=== PATIENT | female | born 1960 | race Caucasian/White ===

== ENCOUNTER → 2018-07-06 | Outpatient (REF) | payer OTHER ==
[2018-07-06 13:38] LABS: BASO % 0.2 % (0.0-1.0); EOS # 0.1 10^3/uL (0.0-0.50); EOS % 1.3 % (0.0-3.0); HEMATOCRIT 40.9 % (36.0-47.0); LYMPH # 1.7 10^3/uL (1.5-4.5); LYMPH % 36.3 % (24.0-44.0); MEAN CORPUSCULAR HEMOGLOBIN 29.5 pg (27.0-33.0); MEAN CORPUSCULAR HGB CONC 31.8 g/dl (32.0-36.5); MEAN CORPUSCULAR VOLUME 92.7 fl (80.0-96.0); MONO # 0.4 10^3/uL (0.0-0.8); MONO % 7.8 % (0.0-5.0); NEUTROPHILS # 2.6 10^3/uL (1.8-7.7); NEUTROPHILS % 54.2 % (36.0-66.0); PLATELET COUNT, AUTOMATED 190 10^3/uL (150-450); RED BLOOD COUNT 4.41 10^6/uL (4.00-5.40); WHITE BLOOD COUNT 4.8 10^3/uL (4.0-10.0)
[2018-07-06 13:47] LABS: ALT/SGPT 23 U/L (12-78); BILIRUBIN,TOTAL 0.9 MG/DL (0.2-1.0); BLOOD UREA NITROGEN 16 MG/DL (7-18); CALCIUM LEVEL 8.8 MG/DL (8.5-10.1); CARBON DIOXIDE LEVEL 32 MEQ/L (21-32); CHLORIDE LEVEL 108 MEQ/L (98-107); CREATININE FOR GFR 0.84 MG/DL (0.55-1.30); GLOMERULAR FILTRATION RATE > 60.0 (>51); GLUCOSE, FASTING 77 MG/DL (70-100); POTASSIUM SERUM 4.5 MEQ/L (3.5-5.1); SODIUM LEVEL 145 MEQ/L (136-145); TOTAL PROTEIN 7.1 GM/DL (6.4-8.2)
== END ==
LOC: M LABNEURO 08:53
PROVIDERS: ATTEND Psychiatry & Neurology Neurology
DX: Z79.899 Other long term (current) drug therapy (principal)

== ENCOUNTER → 2019-08-15 | Outpatient (POV) | payer OTHER, MEDICARE ==
[~2019-08-15] VITALS: Ht 167.6 cm; Wt 77.3 kg
[2019-08-15 10:35] VITALS: BP 163/94
--- NOTE | 2019-08-18 13:05 | IRCOV ---
[facility] IR Consult Office Visit IR Consult Office Visit DATE: Aug 15, 2019 REASON FOR CONSULTATION/CHIEF COMPLAINT: ALS. Feeding tube placement. HISTORY OF PRESENT ILLNESS: 59-year-old female diagnosed recently with ALS, with speech impairment, tongue twitching and oropharyngeal weakness. Weakness in the arms and legs, presents for evaluation for gastrostomy placement. No prior gastric surgeries. Currently able to swallow. No history of reflux, gastrop aresis, aspiration or aspiration pneumonias. ALLERGIES: Please see below. HOME MEDICATIONS: Please see below. PAST MEDICAL HISTORY: None PAST SURGICAL HISTORY: Cholecystectomy FAMILY HISTORY: Noncontributory SOCIAL HISTORY: Nonsmoker. No alcohol or drugs. REVIEW OF SYSTEMS: Otherwise negative PHYSICAL EXAMINATION: VITAL SIGNS: Please see below. GENERAL APPEARANCE: Appears well. Comfortable at rest. HEENT: No scleral icterus. RESPIRATORY: Normal breathing at rest. CARDIOVASCULAR: Normal rate. ABDOMEN: Soft nontender. EXTREMITIES: Moving all 4 extremities. NEUROLOGICAL: Alert and oriented. Speech impairment. PSYCHIATRIC: Appropriate to circumstance. LABORATORY DATA: None recent. Imaging: None ASSESSMENT/PLAN: 59-year-old female with recent diagnosis of ALS with oropharyngeal weakness presents for gastrostomy tube placement. I agree patient needs a gastrostomy catheter. We have scheduled the patient for this procedure. I spent 30 minutes in consultation with the patient. Thank you for this referral. Cc Dr. Corey Ureña VS, I&O, 24H, Diaz Vital Signs/I&O Vital Signs Date Time Temp Pulse Resp B/P (MAP) Pulse Ox O2 Delivery O2 Flow Rate FiO2 08/15/19 10:35 97.7 95 16 163/94 (117) 93 Room Air IVANA DAMON MD Aug 18, 2019 13:05
== END ==
LOC: M IRPOV 10:17
PROVIDERS: ATTEND Radiology Diagnostic Radiology
DX: G12.21 Amyotrophic lateral sclerosis (principal); R13.19 Other dysphagia

== ENCOUNTER → 2019-08-31 | Outpatient (CLI) | payer MEDICARE ==
[~2019-08-31] MED LIST: ACETAMINOPHEN 325 MG TAB As Ordered ONE; CALC600T60 PO; GLUCAGON FOR INJ 1 MG VIAL (J1610) As Ordered ONE; ISOVUE-300 61% 50ML VIAL (Q9967) As Ordered ONE; LIDOCAINE 1% MDV 20ML VIAL As Ordered ONE; LIDOCAINE 2% JELLY 30 ML As Ordered ONE; MIDAZOLAM INJ 2 MG/2 ML VIAL (J2250) As Ordered ONE; MULTCAP PO; NORE1TAB12 PO; ONDANSETRON 4MG/2ML VIAL (J2405) As Ordered ONE; PROMETHAZINE INJ 25 MG/ML VIAL (J2550) As Ordered ONE; RILU1TAB2 PO; SERT25TA85 PO; VITA500T PO; ceFAZolin 1GM VIAL (J0690 PER 500MG) As Ordered ONE; diphenhydrAMINE INJ 50MG/ML VIAL (J1200) As Ordered ONE; fentaNYL 100 MCG/2 ML INJECTION (J3010) As Ordered ONE; tumeric PO
--- NOTE | 2019-08-31 08:20 | IRHP ---
[facility] IR Pre-Procedure H & P General Date of Service: Aug 31, 2019 Procedure: Same Day Surgery Interval History and Physical I have seen the patient and reviewed last H & P performed within 30 days. There is no significant interval change. History of Present Illness Chief Complaint The patient is a 59-year-old female admitted with a reason for visit of ALS. PRE-PROCEDURE DIAGNOSIS:ALS HEART: normla rate. LUNGS: normal breathing at rest. ASA Classification ASA Classification: II-Mild systemic disease Mallampati Score: II NPO: Yes Problems with prior sedation: No Obstructive Sleep Apnea: No Plan moderate sedation Allergies Coded Allergies: No Known Allergies (Unverified , 08/24/19) Home Medications Scheduled Ascorbic Acid (Vitamin C), 1 TAB PO DAILY, (Reported) Calcium Carbonate (Calcium), 1 TAB PO DAILY, (Reported) Multivitamin (Multivitamins), 1 CAP PO DAILY, (Reported) Norethindrone AC-Eth Estradiol (Norethind-Eth Estrad 0.5-2.5), 1 TAB PO DAILY, (Reported) Riluzole (Riluzole), 50 MG PO BID, (Reported) Sertraline Hcl (Sertraline HCl), 25 MG PO DAILY, (Reported) [tumeric], 1 PO DAILY, (Reported) VS, I&O, 24H, Fishbone Vital Signs/I&O Vital Signs Date Time Temp Pulse Resp B/P (MAP) Pulse Ox O2 Delivery O2 Flow Rate FiO2 08/31/19 07:40 97.7 72 16 94 Room Air IVANA DAMON MD Aug 31, 2019 08:20
--- NOTE | 2019-08-31 09:30 | POST-OPPD ---
Postoperative Procedure Note Date Of Procedure: Aug 31, 2019 Time Of Procedure: 09:28 PREOPERATIVE DIAGNOSIS: ALS POSTOPERATIVE DIAGNOSIS: same FINDINGS: normal location of stomach PROCEDURE: 18 F G tube. use after 24 hours. leave to drainage first 24 hours. Flush daily with water. SURGEON: di ANESTHESIA: mod sed ESTIMATED BLOOD LOSS: < 5 ml COMPLICATIONS: none POSTOPERATIVE CONDITION: stable IVANA DAMON MD Aug 31, 2019 09:30
[2019-08-31 11:33] VITALS: BP 149/84
--- NOTE | 2019-09-01 11:24 | REP ---
IR gastrostomy catheter placement with fluoroscopy guidance. IR moderate sedation. Clinical information: ALS. Progressive tongue weakness. Physician: Dr. Galan. Procedure: The patient was advised of the benefits, risks and alternatives of the procedure and informed consent was obtained. The time-out was performed with verification of the patient's name, MRN, site of procedure and type of procedure to be performed. The patient was positioned in the supine position on the angiographic table. The site was prepped and draped in the usual sterile fashion. A 5-Emirati Kumpe catheter in conjunction with a Glidewire was inserted through the nostril under fluoroscopy guidance, down the esophagus into the stomach. The wire was removed. The catheter was taped to the nose. Moderate sedation was performed by the physician including the presence of an independent trained observer who assisted in monitoring the patient's level of consciousness and physiologic status. Following the administration of Versed and Fentanyl, the physician spent 60 minutes of continuous face to face time with the patient. A granite sandblaster apprentice radiograph reveals kumpe catheter tip in the expected location of the stomach. 1 mg of glucagon was administered intravenously. The stomach was insufflated and distended with air through the nasogastric tube. The soft tissues overlying the anticipated puncture site were anesthetized with lidocaine. A gastropexy needle was advanced into the stomach and positioning was confirmed with contrast injection. The gastropexy suture was deployed and secured in the usual fashion. A total of three gastropexy sutures were deployed under fluoroscopy guidance. An 18 gauge needle was advanced into the body of the stomach under fluoroscopy guidance. Contrast was injected through the needle documenting intragastric position. An Amplatz wire was advanced into the stomach. After serial dilation under fluoroscopy guidance, a 20-Emirati peel-away sheath was advanced over the wire into the stomach under fluoroscopy guidance. An 18-Emirati [employer] gastrostomy catheter was then advanced through the peel-away sheath under fluoroscopy guidance. Contrast was injected through the gastrostomy catheter confirming position within the stomach. The balloon was insufflated and retracted to the anterior stomach wall. The catheter bumper was positioned to sandwich the anterior abdominal wall. The catheter was placed to gravity drainage. The nasogastric catheter was removed. The patient tolerated the procedure well and was returned to the inpatient unit in stable condition. EBL: Less than 5 ml. Complications: None. Impression: 1. Successful percutaneous placement of 18-Emirati gastrostomy catheter. Catheter to remain to gravity drainage for 24 hours. 2. Catheter may be used 24 hours past placement; WednesdayAugust 31 1000 hours. The gastropexy sutures will dissolve within 6 weeks and the buttons will fall-off. 3. Patient to follow up in IR clinic in 2 weeks. Thank you this referral. Electronically Signed by Catalina Galan MD 09/01/2019 11:23 A
== END ==
LOC: M IRPRO 07:24
PROVIDERS: ATTEND Radiology Diagnostic Radiology
DX: G12.21 Amyotrophic lateral sclerosis (principal); Z79.899 Other long term (current) drug therapy
CPT/HCPCS: 49440; 99152; 99153; C1729; C1769; C1887; C1894; J0690; J1610; J2250; J2405; J3010; Q9967

== ENCOUNTER → 2019-09-19 | Outpatient (POV) | payer MEDICARE ==
[~2019-09-19] MED LIST changes: -ACETAMINOPHEN 325 MG TAB As Ordered ONE; -GLUCAGON FOR INJ 1 MG VIAL (J1610) As Ordered ONE; -ISOVUE-300 61% 50ML VIAL (Q9967) As Ordered ONE; -LIDOCAINE 1% MDV 20ML VIAL As Ordered ONE; -LIDOCAINE 2% JELLY 30 ML As Ordered ONE; -MIDAZOLAM INJ 2 MG/2 ML VIAL (J2250) As Ordered ONE; -ONDANSETRON 4MG/2ML VIAL (J2405) As Ordered ONE; -PROMETHAZINE INJ 25 MG/ML VIAL (J2550) As Ordered ONE; +VITA-243 PO; -VITA500T PO; -ceFAZolin 1GM VIAL (J0690 PER 500MG) As Ordered ONE; -diphenhydrAMINE INJ 50MG/ML VIAL (J1200) As Ordered ONE; -fentaNYL 100 MCG/2 ML INJECTION (J3010) As Ordered ONE
--- NOTE | 2019-09-20 09:35 | IRPN ---
[facility] IR Progress Note IR Progress Note DATE: Sep 19, 2019 FOLLOW-UP: status post G tube placement. patient doing well. She is flushing it daily without issues. Not started feeds yet as she is still taking food by mouth. No fever or chills. ON EXAMINATION: no video available on patient side IMPRESSION: doing well status post G tube placement. Patient to call if any issues. Follow up with neurology; once supplementation is required, half can ensure diluted with half can water, 3- 4 times a day as tolerated is a good start. Thank you for this referral cc Dr. Ureña Allergies Coded Allergies: No Known Allergies (Unverified , 08/24/19) IVANA DAMON MD Sep 20, 2019 09:35
== END ==
LOC: M IRPOV 09:17
PROVIDERS: ATTEND Radiology Diagnostic Radiology
DX: Z48.815 Encounter for surgical aftercare following surgery on the digestive system (principal)

== ENCOUNTER → 2019-11-16 | Outpatient (CLI) | payer MEDICARE ==
[2019-11-16 16:28] LABS: BASO % 0.1 % (0.0-1.0); EOS # 0.1 10^3/uL (0.0-0.5); EOS % 0.8 % (0.0-3.0); HEMATOCRIT 40.2 % (36.0-47.0); LYMPH # 2.4 10^3/uL (1.5-5.0); LYMPH % 29.6 % (24.0-44.0); MEAN CORPUSCULAR HEMOGLOBIN 30.1 pg (27.0-33.0); MEAN CORPUSCULAR HGB CONC 32.3 g/dl (32.0-36.5); MEAN CORPUSCULAR VOLUME 93.1 fl (80.0-96.0); MONO # 0.5 10^3/uL (0.0-0.8); MONO % 6.2 % (0.0-5.0); PLATELET COUNT, AUTOMATED 211 10^3/uL (150-450); RED BLOOD COUNT 4.32 10^6/uL (4.00-5.40); WHITE BLOOD COUNT 7.9 10^3/uL (4.0-10.0)
[2019-11-16 16:56] LABS: ALBUMIN 3.9 GM/DL (3.2-5.2); BILIRUBIN,TOTAL 0.9 MG/DL (0.2-1.0); CALCIUM LEVEL 9.2 MG/DL (8.8-10.2); CREATININE FOR GFR 1.02 MG/DL (0.55-1.30); GLOMERULAR FILTRATION RATE 58.8 (>45); POTASSIUM SERUM 4.5 MEQ/L (3.5-5.1); TOTAL PROTEIN 6.9 GM/DL (6.4-8.2)
== END ==
LOC: M WUC 13:05
PROVIDERS: ATTEND Psychiatry & Neurology Neurology
DX: G12.21 Amyotrophic lateral sclerosis (principal)

== ENCOUNTER → 2020-06-24 | Outpatient (CLI) | payer MEDICARE ==
[~2020-06-24] MED LIST changes: +BARIUM SULFATE 700 MG TABLET (E-Z-DISK) As Ordered ONE; +E-Z-PAQUE 96% w/w SUSP 176GM BTL As Ordered ONE; +VARIBAR NECTAR 40% w/v 240ML SUSP BTL As Ordered ONE; +VARIBAR PUDDING 40% w/v 230ML TUBE As Ordered ONE
--- NOTE | 2020-06-24 13:50 | REP ---
INDICATION: ALS G12.21. COMPARISON: None. TECHNIQUE: The procedure was performed by Angela Castellanos, [facility], under the direct supervision of Dr. Wilson. The procedure was performed with Araceli Scott from speech pathology present. 5 ml aliquots of thin, pudding, mixed fruit with a putting base, nectar thick, hard food and honey thick consistency barium was administered. FINDINGS: Penetration was visualized with thin consistency barium. Aspiration was visualized with nectar thick consistency barium, this could be aspiration of secretions versus the actual fluid. The detailed report of this examination will be provided by speech pathology. IMPRESSION: Penetration and aspiration was visualized, a detailed report will be provided by speech pathology. 2.1 minutes of fluoroscopy time was utilized for this procedure. Some fluoroscopic images are performed with last image hold technology. These images require no additional radiation <Electronically signed by Angela Castellanos > 06/24/20 1315 <Electronically signed by Akin Wilson > 06/24/20 1014
== END ==
LOC: M RAD 10:39 → EDSTATUS 11:00
PROVIDERS: ATTEND Psychiatry & Neurology Neurology
DX: G12.21 Amyotrophic lateral sclerosis (principal)

== ENCOUNTER 2020-08-27 12:35 | Outpatient (RCR) | payer MEDICARE ==
[~2020-08-27 12:35] MED LIST changes: -BARIUM SULFATE 700 MG TABLET (E-Z-DISK) As Ordered ONE; -E-Z-PAQUE 96% w/w SUSP 176GM BTL As Ordered ONE; -VARIBAR NECTAR 40% w/v 240ML SUSP BTL As Ordered ONE; -VARIBAR PUDDING 40% w/v 230ML TUBE As Ordered ONE
== END 2020-08-28 ==
LOC: M ST 12:35
PROVIDERS: ATTEND Psychiatry & Neurology Neurology
DX: R13.12 Dysphagia, oropharyngeal phase (principal)

== ENCOUNTER 2020-09-10 10:41 | Outpatient (RCR) | payer MEDICARE | END 2020-09-27 | LOC: M ST 10:41 | PROVIDERS: ATTEND Psychiatry & Neurology Neurology | DX: R13.12 Dysphagia, oropharyngeal phase (principal); G12.21 Amyotrophic lateral sclerosis ==

== ENCOUNTER 2020-12-09 07:30 | Outpatient (RCR) | payer MEDICARE | END 2020-12-28 | LOC: M ST 07:30 | PROVIDERS: ATTEND Psychiatry & Neurology Neurology | DX: R13.12 Dysphagia, oropharyngeal phase (principal); R47.01 Aphasia ==

== ENCOUNTER 2021-01-13 11:09 | Outpatient (RCR) | payer MEDICARE | END 2021-01-28 | LOC: M ST 11:09 | PROVIDERS: ATTEND Psychiatry & Neurology Neurology | DX: R13.12 Dysphagia, oropharyngeal phase (principal); R48.8 Other symbolic dysfunctions ==